=== PATIENT | male | born 1985 ===

== ENCOUNTER 2022-04-11 10:39 | Outpatient (CLI) | payer MEDICAID, SELFPAY ==
--- NOTE | 2022-04-11 10:45 | RT.EKG_ITS ---
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
== END 2022-04-11 10:40 | disposition home or self-care (01) ==
PROVIDERS: Visit Provider Family Medicine
DX: Z51.81 Encounter for therapeutic drug level monitoring (principal)
CPT/HCPCS: 93005; 93010